=== PATIENT | female | born 1940 | race Caucasian/White ===

== ENCOUNTER 2024-08-14 10:19 | Emergency (ER) | payer MEDICARE, OTHER, SELFPAY ==
[2024-08-14 10:30] VITALS: PULSE 117; O2SAT 98
[2024-08-14 10:34] VITALS: BP 219/96; PULSE 85; PULSE 91; RESP 17; TEMP 36.8; O2SAT 99; BMI 24.0
[2024-08-14 10:52] VITALS: BP 179/77; PULSE 83; O2SAT 97
[2024-08-14 11:00] VITALS: BP 173/76; PULSE 74; O2SAT 98
[2024-08-14 11:04] LABS: Bacteria Urine Occasional (0-1); RBC Urine 5-10/HPF (0-5/HPF); Squamous Epithelial Cell Urine 1-5 /HPF (0-5/HPF); Urine Volume 10mL (spun); WBC Urine 10-30/HPF (0-5/HPF)
[2024-08-14 11:05] LABS: Culture Indicated Urine Specimen Cultured
--- NOTE | 2024-08-14 11:06 | ED_ITS ---
HPI - General Adult General Chief complaint: Urogenital-Female Stated complaint: Per Patient ,She has a UTI Needs meds Time Seen by Provider: 08/14/24 10:57 Source: patient Mode of arrival: Ambulatory History of Present Illness HPI narrative: 83-year-old female with history of urinary tract infection, was treated with ciprofloxacin last month but only a 3 day course, believes she was partially treated or undertreated, now with dysuria and frequency typical of her previous urinary tract infection symptoms. She would like to take ciprofloxacin, which she feels works for her well. She does not have response in the past to nitrofurantoin. No fevers or chills. No back pain or flank pain. No nausea or vomiting. Related Data Home Medications Medication Instructions Recorded Confirmed aspirin 81 mg tablet,delayed 81 mg PO QDAY ##0 07/03/11 08/14/24 release valacyclovir 500 mg tablet 500 mg PO PRN ##0 06/11/12 08/14/24 cholecalciferol (vitamin D3) 25 1,000 iu PO QDAY ##0 07/03/12 08/14/24 mcg (1,000 unit) tablet (Vitamin D3) bimatoprost 0.01 % eye drops drp EYE-BOTH 08/14/24 (Lumigan) prazosin 1 mg capsule 1 mg PO TID 08/14/24 08/14/24 rabeprazole 20 mg tablet,delayed 20 mg PO DAILY 08/14/24 08/14/24 release telmisartan 40 mg tablet 40 mg PO BID 08/14/24 08/14/24 Previous Rx's Medication Instructions Recorded metformin 500 mg tablet,extended 500 mg PO BID ##180 08/03/12 release 24 hr (Glucophage XR) simvastatin 10 mg tablet (Zocor) 10 mg PO QDAY ##90 10/09/12 ciprofloxacin HCl 500 mg tablet 500 mg PO BID 10 days #20 tabs 08/14/24 Allergies Allergy/AdvReac Type Severity Reaction Status Date / Time doxycycline Allergy Verified 08/14/24 10:44 Sulfa (Sulfonamide Allergy Hives Verified 08/14/24 10:44 Antibiotics) Beta-Blockers AdvReac bradycardia Verified 08/14/24 10:44 (Beta-Adrenergic Bloc led to syncope Patient History Social History Smoking Status: Never smoker Smoking Status: Never smoker Exam Narrative Exam Narrative: GENERAL: Well-developed patient, in mild distress. HEAD: Atraumatic. Normocephalic. EYES: Pupils equal round and reactive. Extraocular motions intact. No scleral icterus. No injection or drainage. ENT: Nose without bleeding, purulent drainage. Throat without erythema, tonsill ar hypertrophy or exudate. Airway patent. NECK: Trachea midline. Non tender CARDIOVASCULAR: Regular rate and rhythm without murmurs, gallops, or rubs. RESPIRATORY: Clear to auscultation. Breath sounds equal bilaterally. No wheezes, rales, or rhonchi. GASTROINTESTINAL: Abdomen soft, non-tender, nondistended. EXTREMITIES: No edema or joint tenderness. BACK: Nontender without deformity or crepitance. No flank tenderness. NEURO: AOx3. Motor functions grossly nonfocal SKIN: No rash or erythema of visible areas Initial Vital Signs Initial Vital Signs: Vital Signs Pulse Rate 117 H 08/14/24 10:30 Pulse Oximetry 98 08/14/24 10:30 Course Orders Ordered: Discontinued Medications Ciprofloxacin (Ciprofloxacin 250 Mg Tablet) 500 mg PO NOW ONE Stop: 08/14/24 11:19 Last Admin: 08/14/24 11:26 Dose: 500 mg Documented By: AMANDEEP Vital Signs Vital signs: Vital Signs - 8 hr 08/14/24 10:34 Temperature 98.2 F Pulse Rate 85 Respiratory Rate 17 Blood Pressure 219/96 H Pulse Oximetry 99 Oxygen Delivery Method Room Air Medical Decision Making Lab Data Labs: Lab Results 08/14/24 Range/Units 10:25 Urine RBC 5-10/hpf H (0-5/HPF) Urine WBC 10-30/hpf H (0-5/HPF) Ur Squamous Epith Cells 1-5 /hpf (0-5/HPF) Urine Bacteria Occasional (0-1) (None) Ur Culture Indicated? Specimen cultured Vol Urine Centrifuged 10ml (spun) Urine Dip Bedside Urine Glucose Negative Bedside Urine Bilirubin - Negative Bedside Urine Ketone - Negative Urine Specific [place] 1.01 Bedside Urine Occult Blood +++ Bedside Urine pH 6 Bedside Urine Protein - Negative Bedside Urine Urobilinogen - Negative Bedside Urine Nitrite - Negative Bedside Urine Leukocytes ++ 125 Esterase Point of care testing: Urine Dip Bedside Urine Glucose Negative Bedside Urine Bilirubin - Negative Bedside Urine Ketone - Negative Urine Specific [place] 1.01 Bedside Urine Occult Blood +++ Bedside Urine pH 6 Bedside Urine Protein - Negative Bedside Urine Urobilinogen - Negative Bedside Urine Nitrite - Negative Bedside Urine Leukocytes ++ 125 Esterase MDM Narrative Medical decision making narrative: 83-year-old female with dysuria symptoms, urinalysis suspicious for urine infection, urine culture sent by protocol by laboratory. Patient would like to take ciprofloxacin which has worked well for her in the past, is aware of tendinopathy concerns, but requests this medication and a longer course than 3 days. Ciprofloxacin 500 mg 1st dose oral now, prescription for 7 day course. Pyridium offered, declined. Discharged home, return precautions discussed Discharge Plan Departure Patient Disposition: Home Clinical Impression: Urinary tract infection Activity Restrictions/Additional Instructions: Recurrent urinary tract infection, 3 day course last month possibly inadequate. Usually you take ciprofloxacin which has been quite helpful for you, and you have not had problems with the tendon complication of fluoroquinolone antibiotics thus far. You have recent typical urinary tract infection symptoms, no fevers or chills, afebrile on triage. Urinalysis suspicious for urinary tract infection, urine culture had been requested by laboratory services per protocol. First dose of your preferred antibiotic oral ciprofloxacin given in the emergency department, prescription for further course sent to your pharmacy. Take 1 tablet twice daily for 5 day course. There should be supply for an additional 5 day course to use if needed. Consider recheck with your regular doctor if not improving by early next week. Return to this/nearest emergency department for any change worsening symptoms or any concerns prior Prescriptions: New ciprofloxacin HCl 500 mg tablet 500 mg PO BID 10 Days Qty: 20 0RF No Action aspirin 81 MG tablet,delayed release (DR/EC) 81 mg PO QDAY Qty: 0 valacyclovir 500 MG tablet 500 mg PO PRN Qty: 0 cholecalciferol (vitamin D3) [Vitamin D3] 1,000 UNIT tablet 1,000 iu PO QDAY Qty: 0 metformin [Glucophage XR] 500 MG tablet extended release 24 hr 500 mg PO BID Qty: 180 1RF simvastatin [Zocor] 10 MG tablet 10 mg PO QDAY Qty: 90 1RF rabeprazole 20 mg tablet,delayed release (DR/EC) 20 mg PO DAILY prazosin 1 mg Capsule 1 mg PO TID telmisartan 40 mg tablet 40 mg PO BID Lumigan 0.01 % drops EYE-BOTH Referrals: Jemma Goel PA-C [Primary Care Provider] - Stand Alone Forms: Patient Portal/API/Survey
[2024-08-14] MEDS: CIPROFLOXACIN 250 MG TABLET 500 MG PO (11:26)
== END 2024-08-14 11:32 | disposition home or self-care (01) ==
PROVIDERS: Emergency Provider Emergency Medicine; PCP Physician Assistant Medical
DX: N39.0 Urinary tract infection, site not specified (principal)
CPT/HCPCS: 81003; 81015; 87086; 99283

== ENCOUNTER 2024-09-29 14:39 | Emergency (ER) | payer MEDICARE, OTHER, SELFPAY ==
[2024-09-29 14:45] VITALS: BP 208/91; PULSE 70; RESP 18; TEMP 36.9; O2SAT 96; BMI 24.2
--- NOTE | 2024-09-29 15:08 | ED.ABDPAIN ---
HPI - Abdominal Pain General Chief Complaint: Abdominal Pain Stated Complaint: low back pain Time Seen by Provider: 09/29/24 15:08 Source: patient Mode of arrival: Ambulatory History of Present Illness HPI narrative: Ms. Dodd is a pleasant 83-year-old female with a past medical history of hypertension, frequent UTI, type 2 diabetes on metformin who presents to the emergency department for right low back pain radiating to the RLQ of the abdomen x 5 days. Patient states the pain primarily started in the low back however over the last few days the pain is radiated to the right low back and is now occasionally radiating around the abdomen into the right lower quadrant of the abdomen. States that ibuprofen has helped only slightly with the pain and she is also using topical lidocaine patch. She denies any radiation of pain into the lower extremity. Denies chest pain, shortness of breath, fevers, chills, nausea, vomiting, dysuria, hematuria, melena, hematochezia, constipation. She did note small amount of dribbling urine. She denies any history of abdominal surgeries. Related Data Home Medications Medication Instructions Recorded Confirmed aspirin 81 mg tablet,delayed 81 mg PO QDAY ##0 07/03/11 08/14/24 release valacyclovir 500 mg tablet 500 mg PO PRN ##0 06/11/12 08/14/24 cholecalciferol (vitamin D3) 25 1,000 iu PO QDAY ##0 07/03/12 08/14/24 mcg (1,000 unit) tablet (Vitamin D3) bimatoprost 0.01 % eye drops drp EYE-BOTH 08/14/24 (Chacorta) prazosin 1 mg capsule 1 mg PO TID 08/14/24 08/14/24 rabeprazole 20 mg tablet,delayed 20 mg PO DAILY 08/14/24 08/14/24 release telmisartan 40 mg tablet 40 mg PO BID 08/14/24 08/14/24 Previous Rx's Medication Instructions Recorded metformin 500 mg tablet,extended 500 mg PO BID ##180 08/03/12 release 24 hr (Glucophage XR) simvastatin 10 mg tablet (Zocor) 10 mg PO QDAY ##90 10/09/12 Allergies Allergy/AdvReac Type Severity Reaction Status Date / Time doxycycline Allergy Verified 08/14/24 10:44 Sulfa (Sulfonamide Allergy Hives Verified 08/14/24 10:44 Antibiotics) Beta-Blockers AdvReac bradycardia Verified 08/14/24 10:44 (Beta-Adrenergic Bloc led to syncope Review of Systems Review of Systems ROS Unobtainable: All systems reviewed & are unremarkable except as noted in HPI and below Patient History Social History Smoking Status: Never smoker Smoking Status: Never smoker Exam Narrative Exam Narrative: GENERAL: 83 year old patient appears stated age. Well-developed patient, in no acute distress. HEAD: Atraumatic. Normocephalic. NECK: Trachea midline. Cervical ROM intact. CARDIOVASCULAR: Regular rate and rhythm. RESPIRATORY: ?Nonlabored respirations. ?Speaking in clear, full sentences. ?Clear to auscultation. Breath sounds equal bilaterally. No wheezes, rales, or rhonchi. ? GASTROINTESTINAL: Abdomen soft, nondistended, normal bowel sounds. Slight tenderness to palpation of right lower quadrant/lateral abdomen with deep palpation. Negative CVA tenderness bilaterally but there is subjective pain in the right paralumbar spinal muscle region. No tenderness to palpation of right upper quadrant, left lower quadrant, left upper quadrant. Negative Rivera's sign. EXTREMITIES: No edema or joint tenderness. NEURO: AOx3. ?Clear speech. ?Moves all 4 extremities appropriately. Steady independent gait. SKIN: No rash or erythema of visible areas Initial Vital Signs Initial Vital Signs: Vital Signs Temperature 98.5 F 09/29/24 14:45 Pulse Rate 70 09/29/24 14:45 Respiratory Rate 18 09/29/24 14:45 Blood Pressure 208/91 H 09/29/24 14:45 Pulse Oximetry 96 09/29/24 14:45 Oxygen Delivery Method Room Air 09/29/24 14:45 Course Orders Ordered: ED Orders 09/29/24 14:50 Urine Microscopic Stat 09/29/24 15:20 CT abdomen pelvis w con Stat 09/29/24 15:39 Complete Blood Count AUTO DIFF Stat Comprehensive Metabolic Panel Stat Lipase Stat Discontinued Medications Hydrocodone Bitart/Acetaminophen (Hydrocodone/Acet 5/325 Tablet) 1 tab PO NOW ONE Stop: 09/29/24 15:19 Last Admin: 09/29/24 15:50 Dose: 1 tab Documented By: KRIS Hydrocodone Bitart/Acetaminophen (Hydrocodone/Acet 5/325 Prepack) 1 bottle MISC DIRECTED ONE Stop: 09/29/24 18:28 Last Admin: 09/29/24 18:40 Dose: 1 bottle Documented By: KRIS Ketorolac Tromethamine (Ketorolac 30 Mg/Ml Vial) 15 mg IV NOW ONE Stop: 09/29/24 15:19 Last Admin: 09/29/24 15:50 Dose: 15 mg Documented By: KRIS Ondansetron HCl (Ondansetron 4 Mg/2 Ml Inj) 4 mg IV NOW PRN PRN Reason: Nausea And Vomiting Ondansetron HCl (Ondansetron 4 Mg Odt) 4 mg SL NOW PRN PRN Reason: Nausea And Vomiting Vital Signs Vital signs: Vital Signs - 8 hr 09/29/24 14:45 09/29/24 17:10 Temperature 98.5 F Pulse Rate 70 71 Respiratory Rate 18 18 Blood Pressure 208/91 H 202/87 H Pulse Oximetry 96 98 Oxygen Delivery Method Room Air MDM - Abdominal Pain Medical Records Attestation: I reviewed the patient's medical records. Medical records narrative: UTI 08/14/24 treated with cipro Lab Data 09/29/24 15:39 09/29/24 15:39 Labs: Lab Results 09/29/24 09/29/24 Range/Units 14:50 15:39 WBC 7.3 (4.5-11.0) X10^3/uL RBC 3.85 L (4.0-5.2) X10^6/uL Hgb 11.6 L (12.0-16.0) g/dL Hct 34.2 L (36-46) % MCV 89.0 (80-100) fL MCH 30.1 (26-34) PG MCHC 33.9 (30-36) % RDW 14.7 (11.6-14.8) % Plt Count 241 (150-400) X10^3/uL Neut % (Auto) 69.3 (50-75) % Lymph % (Auto) 15.2 L (25-40) % [place] % (Auto) 8.4 (3-14) % Eos % (Auto) 6.4 H (2-4) % Baso % (Auto) 0.7 (0-2) % Neut # (Auto) 5100 (5760-5258) /uL Lymph # (Auto) 1100 (7493-2108) /uL [place] # (Auto) 600 (0-900) /uL Eos # (Auto) 500 H (0-450) /uL Baso # (Auto) 0 (0-100) /uL Sodium 134 L (137-145) mmol/L Potassium 4.9 (3.4-5.1) mmol/L Chloride 101 (98-107) mmol/L Carbon Dioxide 24 (22-32) mmol/L BUN 14 (7-17) mg/dL Creatinine 1.04 (0.52-1.04) mg/dL Estimated GFR 54 L (>60) mL/min BUN/Creatinine Ratio 13.5 (6-22) Glucose 129 H (80-110) mg/dL Calcium 9.6 (8.4-10.2) mg/dL Total Bilirubin 0.9 (0.2-1.3) mg/dL AST 33 (14-36) IU/L ALT 32 (<35) IU/L Alkaline Phosphatase 70 (38-126) U/L Total Protein 7.8 (6.3-8.2) g/dL Albumin 4.8 (3.5-5.0) g/dL Globulin 3.0 (1.7-4.1) g/dL Albumin/Globulin Ratio 1.6 (1.0-2.8) Lipase 130 (23-300) U/L Urine RBC None seen (0-5/HPF) Urine WBC None seen (0-5/HPF) Ur Squamous Epith Cells None seen (0-5/HPF) Urine Bacteria None seen (None) Ur Culture Indicated? Cult not indicated Vol Urine Centrifuged 10ml (spun) Point of care testing: Urine Dip Bedside Urine Glucose Negative Bedside Urine Bilirubin - Negative Bedside Urine Ketone - Negative Urine Specific [place] 1.010 Bedside Urine Occult Blood - Negative Bedside Urine pH 7.0 Bedside Urine Protein - Negative Bedside Urine Urobilinogen - Negative Bedside Urine Nitrite - Negative Bedside Urine Leukocytes - Negative Esterase Imaging Data CT scan - abdomen/pelvis: Radiologist's Impression: PROCEDURE: CT ABDOMEN PELVIS W CON INDICATIONS: right low back pain; int radiation to RLQ TECHNIQUE: After the administration of intravenous contrast, axial sections acquired from the lung bases to the pubic symphysis. Coronal and sagittal reformats were performed. For radiation dose reduction, the following was used: automated exposure control, adjustment of mA and/or kV according to patient size. COMPARISON: None. FINDINGS: Image quality: Diagnostic Lower chest: Lung bases appear unremarkable. There are partially visualized coronary calcifications. Liver: Unremarkable Gallbladder and biliary system: Unremarkable, nondilated Pancreas: No ductal dilation. A 1.4 cm pancreatic body cystic lesion is seen. Spleen: Nonenlarged Adrenals: No discrete nodules Kidneys: No solid mass. No hydronephrosis. Vessels and lymph nodes: Main portal vein appears patent. No abdominal aortic aneurysm or pathologic lymphadenopathy by size criteria Bowel and peritoneum: No evidence of small bowel obstruction. There are colonic diverticula. No pathologic ascites or drainable abscess. Wall thickening is seen in the distal colon. The appendix is nondilated Body wall: Unremarkable Pelvis: Bladder is unremarkable. Reproductive organs are unremarkable on limited CT evaluation Bones: There are degenerative changes. Disc space height loss is particularly seen at L5-S1. IMPRESSION: Nondilated appendix. No small bowel obstruction. Lumbar degenerative changes with particular disc space height loss at L5-S1. There are numerous colonic diverticula, without definite acute inflammation. Wall thickening is seen at the distal colon likely chronic diverticular disease. Consider colonoscopy follow-up if clinically indicated. Incidentally noted 1.4 cm pancreatic body cystic lesion most commonly IPMN. A pancreas protocol MRI can further evaluate. Other findings above. MDM Narrative Medical decision making narrative: 83-year-old female with a past medical history of hypertension, frequent UTI, type 2 diabetes on metformin who presents to the emergency department for right low back pain radiating to the RLQ of the abdomen x 5 days. Differential diagnosis includes but is not limited to UTI, pyelonephritis, or ureterolithiasis, nephrolithiasis, appendicitis, cholecystitis, diverticulitis, ovarian cyst, uterine mass, spinal stenosis, lumbar radiculopathy, etc. On exam the patient is in no acute distress, nontoxic appearing, vital signs within normal limits except for elevated blood pressure of 201/98, patient admits to history of white coat hypertension but denies chest pain, shortness of breath. Physical exam reveals tenderness to palpation of the right lower quadrant/lateral side of the abdomen and the right paralumbar spinal region. She has no radicular symptoms down the legs, no weakness numbness or tingling. Bowel sounds are normal and there is no rebound or guarding. We will proceed with CBC, CMP, lipase, CT abdomen and pelvis further evaluation of possible intra-abdominal pathology. We will treat pain with Toradol and hydrocodone-acetaminophen. UA was obtained in triage which is normal. Labs reveal normal WBC count 7.3, hemoglobin 11.6 hematocrit 34.2. Sodium 134, potassium 4.9, BUN 14 creatinine 1.04 with a GFR 54, unsure of baseline. Glucose 129. Normal LFTs and lipase. Negative urine micro. CT abdomen and pelvis reveals degenerative changes with disc space height loss at L5-S1 level. Nondilated appendix. No small bowel obstruction. Numerous colonic diverticula, incidentally noted 1.4 cm pancreatic body cystic lesion. Printed CT scan report and discussed all findings including incidentals with her and her spouse. She is pain-free at this time in her abdomen is soft and nontender. Suspect musculoskeletal type pain, prescribed very short course of hydrocodone-acetaminophen as needed for severe pain but recommended acetaminophen and lidocaine patches for [id number] pain. Discouraged use of NSAIDs at this time given GFR of 54, unknown if she is baseline CKD or not. She is feeling much better, eager for discharge home. Verbalized strict ED return precautions and follow up with PCP. She is agreeable to the plan and stable for discharge home. Discharge Plan Departure Patient Disposition: Home Clinical Impression: Degenerative disc disease at L5-S1 level, Diverticulosis, Pancreas cyst Instructions: DI for Low Back Pain Activity Restrictions/Additional Instructions: Dear Yousif, Thank you so much for coming to the emergency department. Today you were evaluated for right-sided low back pain radiating to her abdomen. CT scan revealed lumbar degenerative changes at the L5-S1 level, numerous colonic diverticula, and a 1.4 cm pancreatic body cystic lesion that you should follow up with your primary care doctor for for further evaluation. You have been provided with a very short course of opioid pain medication to use if needed for severe pain. I would like you to also take Tylenol. You may also take Acetaminophen 650 mg every 4-6 hours for pain. Do not exceed 3000 mg of Tylenol a day as this can cause liver damage. Do not drink alcohol with either of these medications. You may also use topical lidocaine patches for 12 hours at a time to help with the pain. You have been prescribed a short course of narcotic medications. These are potentially dangerous and addictive medications that should be used carefully. While on these medications you cannot drive or operate heavy machinery. Additionally, you cannot sign legal documents or perform any duties such as this. 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 Please understand that we cannot provide further refills of narcotics or controlled substances through the ED and your pain management will need to be through your Primary Care Provider Return to the emergency department if you develop fevers, worsening abdominal pain, bloody stool, vomiting, any other concerns. Please follow up with your primary care doctor within the next 2-3 days for ER follow-up. (If you do not have a PCP you can call [phone]. ?to schedule an appointment with an [facility] Primary Care Provider) IF YOU DEVELOP ANY NEW OR WORSENING SYMPTOMS, RETURN TO THE ER! Please read the attached instructions, they highlight more specific treatments and interventions for you at home. Thank you for letting me participate in your care, Elena Gannon PA-C Prescriptions: No Action aspirin 81 MG tablet,delayed release (DR/EC) 81 mg PO QDAY Qty: 0 valacyclovir 500 MG tablet 500 mg PO PRN Qty: 0 cholecalciferol (vitamin D3) [Vitamin D3] 1,000 UNIT tablet 1,000 iu PO QDAY Qty: 0 metformin [Glucophage XR] 500 MG tablet extended release 24 hr 500 mg PO BID Qty: 180 1RF simvastatin [Zocor] 10 MG tablet 10 mg PO QDAY Qty: 90 1RF rabeprazole 20 mg tablet,delayed release (DR/EC) 20 mg PO DAILY prazosin 1 mg Capsule 1 mg PO TID telmisartan 40 mg tablet 40 mg PO BID Lumigan 0.01 % drops EYE-BOTH Referrals: Jemma Goel PA-C [Primary Care Provider] - Stand Alone Forms: Patient Portal/API/Survey
--- NOTE | 2024-09-29 15:20 | DI.CT.S_ITS ---
PROCEDURE: CT ABDOMEN PELVIS W CON INDICATIONS: right low back pain; int radiation to RLQ TECHNIQUE: After the administration of intravenous contrast, axial sections acquired from the lung bases to the pubic symphysis. Coronal and sagittal reformats were performed. For radiation dose reduction, the following was used: automated exposure control, adjustment of mA and/or kV according to patient size. COMPARISON: None. FINDINGS: Image quality: Diagnostic Lower chest: Lung bases appear unremarkable. There are partially visualized coronary calcifications. Liver: Unremarkable Gallbladder and biliary system: Unremarkable, nondilated Pancreas: No ductal dilation. A 1.4 cm pancreatic body cystic lesion is seen. Spleen: Nonenlarged Adrenals: No discrete nodules Kidneys: No solid mass. No hydronephrosis. Vessels and lymph nodes: Main portal vein appears patent. No abdominal aortic aneurysm or pathologic lymphadenopathy by size criteria Bowel and peritoneum: No evidence of small bowel obstruction. There are colonic diverticula. No pathologic ascites or drainable abscess. Wall thickening is seen in the distal colon. The appendix is nondilated Body wall: Unremarkable Pelvis: Bladder is unremarkable. Reproductive organs are unremarkable on limited CT evaluation Bones: There are degenerative changes. Disc space height loss is particularly seen at L5-S1. IMPRESSION: Nondilated appendix. No small bowel obstruction. Lumbar degenerative changes with particular disc space height loss at L5-S1. There are numerous colonic diverticula, without definite acute inflammation. Wall thickening is seen at the distal colon likely chronic diverticular disease. Consider colonoscopy follow-up if clinically indicated. Incidentally noted 1.4 cm pancreatic body cystic lesion most commonly IPMN. A pancreas protocol MRI can further evaluate. Other findings above. Dictated by: Yves Cordova M.D. on 09/29/2024 at 17:07 Approved by: Yves Cordova M.D. on 09/29/2024 at 17:11
[2024-09-29] MEDS: KETOROLAC 30 MG/ML VIAL 15 MG IV (15:50)
[2024-09-29] MEDS: HYDROCODONE/ACET 5/325 TABLET 1 TAB PO (15:50)
[2024-09-29 16:06] LABS: Add Manual Diff / Slide Review NO; Basophils Absolute Auto 0 /uL (0-100); Basophils Percent Auto 0.7 % (0-2); Eosinophils Absolute Auto 500 /uL (0-450); Eosinophils Percent Auto 6.4 % (2-4); Hematocrit 34.2 % (36-46); Hemoglobin 11.6 g/dL (12.0-16.0); Lymphocytes Absolute Auto 1100 /uL (1100-4500); Lymphocytes Percent Auto 15.2 % (25-40); Mean Corpuscular HGB Conc 33.9 % (30-36); Mean Corpuscular Hemoglobin 30.1 PG (26-34); Monocytes Absolute Auto 600 /uL (0-900); Monocytes Percent Auto 8.4 % (3-14); Neutrophils Absolute Auto 5100 /uL (1500-7000); Neutrophils Percent Auto 69.3 % (50-75); Platelet Count 241 X10^3/uL (150-400); Red Blood Cell Count 3.85 X10^6/uL (4.0-5.2); Red Cell Distribution Width 14.7 % (11.6-14.8); White Blood Cell Count 7.3 X10^3/uL (4.5-11.0)
[2024-09-29 16:19] LABS: Alanine Aminotransferase 32 IU/L (<35); Albumin 4.8 g/dL (3.5-5.0); Albumin Globulin Ratio 1.6 (1.0-2.8); Alkaline Phosphatase 70 U/L (38-126); Aspartate Aminotransferase 33 IU/L (14-36); BUN Creatinine Ratio 13.5 (6-22); Bilirubin Total 0.9 mg/dL (0.2-1.3); Blood Urea Nitrogen 14 mg/dL (7-17); Calcium 9.6 mg/dL (8.4-10.2); Carbon Dioxide 24 mmol/L (22-32); Chloride 101 mmol/L (98-107); Estimated Glomerular Filt Rate 54 mL/min (>60); Glucose 129 mg/dL (80-110); HEMOLYSIS < 15 (0-50); Lipase 130 U/L (23-300); Potassium 4.9 mmol/L (3.4-5.1); Sodium 134 mmol/L (137-145); Total Protein 7.8 g/dL (6.3-8.2)
[2024-09-29 17:10] VITALS: BP 202/87; PULSE 71; RESP 18; O2SAT 98
[2024-09-29 17:14] LABS: Bacteria Urine None Seen; RBC Urine None Seen (0-5/HPF); Squamous Epithelial Cell Urine None Seen (0-5/HPF); Urine Volume 10mL (spun); WBC Urine None Seen (0-5/HPF)
[2024-09-29 17:15] LABS: Culture Indicated Urine Cult Not Indicated
[2024-09-29] MEDS: HYDROCODONE/ACET 5/325 PREPACK 1 BOTTLE MISC (18:40)
== END 2024-09-29 18:43 | disposition home or self-care (01) ==
PROVIDERS: Emergency Provider Physician Assistant; PCP Physician Assistant Medical
DX: M51.379 Other intervertebral disc degeneration, lumbosacral region without mention of lumbar back pain or lower extremity pain (principal); K57.30 Diverticulosis of large intestine without perforation or abscess without bleeding; K86.2 Cyst of pancreas; I10 Essential (primary) hypertension; E11.9 Type 2 diabetes mellitus without complications; Z79.84 Long term (current) use of oral hypoglycemic drugs; Z87.440 Personal history of urinary (tract) infections
CPT/HCPCS: 36415; 74177; 80053; 81003; 81015; 83690; 85025; 96374; 99284; 99285; J1885; Q9967

== ENCOUNTER → 2024-10-26 12:44 | Outpatient (CLI) | payer MEDICARE, OTHER, SELFPAY ==
--- NOTE | 2024-10-26 12:47 | DI.MRI.S_ITS ---
PROCEDURE: MR AB PANCREATIC/MRCP PROTOCOL INDICATIONS: CYST OF PANCREAS TECHNIQUE: Coronal HASTE through the abdomen, axial 2-D FLASH in- and [id number], and breath-hold T2 FSE with fat saturation through the biliary system and pancreas. Oblique coronal and axial thin-slice HASTE, radial thick-slab HASTE centered on the extrahepatic bile ducts. Intravenous secretin: Not requested. COMPARISON: None. FINDINGS: Image quality: Diagnostic. Gallbladder: Decompressed. Biliary ducts: No biliary dilation. Pancreas: No ductal dilation. Small cyst at the tail the pancreas measuring 1.4 cm, (3/13), unchanged. No suspicious enhancement or restricted diffusion. No intrinsic T1 hyperintense signal. OTHER: Lung bases: Unremarkable. Liver: No solid mass. Spleen: Size is within normal limits. Adrenal Glands: No adrenal nodules. Kidneys and Ureters: No hydronephrosis. No solid mass. No complex renal cystic lesion which requires follow up. Stomach and Bowel: Normal colonic caliber, without significant wall thickening. Diverticulosis. Peritoneum: No abnormal intraperitoneal fluid. No free air. Ventral Wall: No hernia. Abdominal Nodes: No retroperitoneal or mesenteric adenopathy by size criteria. Vessels: Aorta and inferior vena cava are normal in size. Bones: No aggressive osseous abnormality. IMPRESSION: 1. Small cyst at the tail the pancreas measuring 1.4 cm is unchanged. No high risk stigmata. 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 Follow-up imaging with MRI pancreas in 2 years could be considered in this patient greater than 80 years. 2. No biliary or pancreatic ductal dilatation. Dictated by: Duran Reeder M.D. on 10/28/2024 at 12:39 Approved by: Duran Reeder M.D. on 10/28/2024 at 12:54
== END ==
LOC: MRI 12:45
PROVIDERS: PCP Physician Assistant Medical; Referring Provider Physician Assistant Medical; Visit Provider Physician Assistant Medical
DX: K86.2 Cyst of pancreas (principal)
CPT/HCPCS: 74183; A9579